=== PATIENT | male | born 1995 | race Caucasian/White ===

== ENCOUNTER → 2022-03-02 | Outpatient (CLI) | payer OTHER ==
[~2022-03-02] MED LIST: IBUPROFEN600 MG PO
[2022-03-02 12:46] LABS: HEMOGLOBIN 15.6 gm/dl (14.0-17.5); RED BLOOD COUNT 5.17 M/UL (4.20-5.50); WHITE BLOOD COUNT 6.6 K/UL (4.5-11.0)
[2022-03-02 13:26] LABS: BUN/CREATININE RATIO 8 (0-10)
[2022-03-06 09:14] LABS: CHOLESTEROL, TOTAL 209 mg/dL (100-199); HDL CHOLESTEROL 40 mg/dL (>39); LDL CHOLESTEROL CALC 144 mg/dL (0-99); LDL/HDL RATIO 3.6 ratio (0.0-3.6); T. CHOL/HDL RATIO 5.2 ratio (0.0-5.0); TRIGLYCERIDES 138 mg/dL (0-149)
== END ==
LOC: LAB 12:08
PROVIDERS: Nurse Practitioner Family
DX: E78.5 Hyperlipidemia, unspecified (principal); E55.9 Vitamin D deficiency, unspecified
CPT/HCPCS: 36415; 80053; 80061; 81001; 84439; 84443; 85025